=== PATIENT | male | born 1980 | race Caucasian/White ===

== ENCOUNTER 2017-06-12 19:13 | Emergency (ER) | payer OTHER ==
[~2017-06-12] VITALS: Ht 177.8 cm; Wt 90.7 kg
[~2017-06-12 19:13] MED LIST: BACTRIM DS TAB1 EACH PO; BACTROBAN CREAM30 G1 TOP; BENADRYL25 MG PO; CIPROFLOXACIN500 M1 PO; CLONAZEPAM 1 MG1 M1 PO; LIDEX30 GM TP; NOHOMEMEDICATIONS; NORCO 5-325 TA1 EACH PO; REMERON15 M1
[2017-06-12] MEDS ORDERED: HYDROCODONE-AP1 EAC6 PO (20:26)
[2017-06-12] MEDS ORDERED: IBUPROFEN 600600 M1 PO (20:26)
[2017-06-12 20:35] VITALS: BP 124/66
== END 2017-06-12 20:35 | disposition home or self-care (01) ==
LOC: M.ERS 19:13
DX: S83.91XA Sprain of unspecified site of right knee, initial encounter (principal); Z88.2 Allergy status to sulfonamides; Z88.5 Allergy status to narcotic agent; Z88.1 Allergy status to other antibiotic agents

== ENCOUNTER 2018-01-17 17:04 | Emergency (ER) | payer OTHER ==
[~2018-01-17] VITALS: Ht 177.8 cm; Wt 81.7 kg
[~2018-01-17 17:04] MED LIST changes: +HYDROCODONE-AP1 EAC6 PO; +IBUPROFEN 600600 M1 PO
[2018-01-17] MEDS ORDERED: NORCO 5-325 TA1 EACH PO (17:34)
[2018-01-17 18:06] VITALS: BP 104/76
== END 2018-01-17 18:08 | disposition home or self-care (01) ==
LOC: M.ERS 17:04
DX: T24.211A Burn of second degree of right thigh, initial encounter (principal); T31.0 Burns involving less than 10% of body surface; F17.210 Nicotine dependence, cigarettes, uncomplicated; Z88.5 Allergy status to narcotic agent; Z88.1 Allergy status to other antibiotic agents; Z88.2 Allergy status to sulfonamides; X12.XXXA Contact with other hot fluids, initial encounter; Y93.89 Activity, other specified; Y92.89 Other specified places as the place of occurrence of the external cause; Y99.8 Other external cause status

== ENCOUNTER 2018-07-22 18:01 | Emergency (ER) | payer OTHER ==
[~2018-07-22] VITALS: Ht 177.8 cm; Wt 94.3 kg
[2018-07-22 18:42] LABS: ABSOLUTE EOSINOPHILS 0.1 thou/uL (0.0-0.7); ABSOLUTE MONOCYTES 0.5 thou/uL (0.0-1.2); ABSOLUTE NEUTROPHILS 3.5 thou/uL (1.6-8.1); BASOPHILS 0.5 %; EOSINOPHILS 1.1 %; HEMATOCRIT 43.9 % (42.0-52.0); HEMOGLOBIN 15.1 gm/dL (14.0-18.0); LYMPHOCYTES 42.2 %; MCH 31.3 pg (26.0-34.0); MCHC 34.3 g/dL (28.0-37.0); MCV 91.2 fL (80.0-100.0); MONOCYTES 7.1 %; MPV 7.5 fl. (7.2-11.1); NUCLEATED RBCS 0 /100WBC; PLATELET COUNT* 200 thou/uL (150-400); POLYS 49.1 %; RBC 4.81 mil/uL (4.50-6.00); RDW-CV 13.2 % (10.5-14.5); WBC 7.2 thou/uL (4.0-11.0)
[2018-07-22 18:43] LABS: URINE BILIRUBIN NEGATIVE (Negative); URINE BLOOD NEGATIVE (Negative); URINE CLARITY CLEAR; URINE COLOR YELLOW; URINE GLUCOSE-RANDOM NEGATIVE (Negative); URINE KETONES NEGATIVE (Negative); URINE LEUKOCYTES-REFLEX NEGATIVE (Negative); URINE NITRITE-REFLEX NEGATIVE (Negative); URINE PROTEIN NEGATIVE (Negative); URINE SPECIFIC GRAVITY 1.025 (1.005-1.030)
[2018-07-22 19:02] LABS: ALBUMIN 3.9 g/dL (3.4-5.0); CALCIUM 8.5 mg/dL (8.5-10.1); CREATININE 1.1 mg/dL (0.6-1.3); POTASSIUM 3.4 mmol/L (3.5-5.1); TOTAL BILIRUBIN 1.2 mg/dL (<0.1-1.0)
[2018-07-22] MEDS ORDERED: ACETAMINOPHEN-1 EAC1 PO (20:31)
[2018-07-22] MEDS ORDERED: ZOFRAN ODT4 MG PO (20:31)
[2018-07-22] MEDS ORDERED: EMVERM100 MG PO (20:43)
[2018-07-22] MEDS ORDERED: ONDANSETRON HCL4 M2 PO (20:43)
[2018-07-22 20:50] VITALS: BP 118/58
== END 2018-07-22 20:50 | disposition home or self-care (01) ==
LOC: M.ERS 18:01
PROVIDERS: Physician Assistant
DX: B80 Enterobiasis (principal); R11.2 Nausea with vomiting, unspecified; R10.31 Right lower quadrant pain; R10.13 Epigastric pain; Z88.5 Allergy status to narcotic agent; Z88.2 Allergy status to sulfonamides; Z88.8 Allergy status to other drugs, medicaments and biological substances

== ENCOUNTER 2018-08-19 12:26 | Emergency (ER) | payer OTHER ==
[~2018-08-19] VITALS: Ht 172.7 cm; Wt 81.7 kg
[~2018-08-19 12:26] MED LIST changes: +ACETAMINOPHEN-1 EAC1 PO; +EMVERM100 MG PO; +ONDANSETRON HCL4 M2 PO; +ZOFRAN ODT4 MG PO
[2018-08-19 13:08] LABS: ABSOLUTE BASOPHILS 0.1 thou/uL (0.0-0.2); ABSOLUTE LYMPHOCYTES 2.4 thou/uL (0.8-5.3); ABSOLUTE MONOCYTES 0.5 thou/uL (0.0-1.2); EOSINOPHILS 0.7 %; HEMATOCRIT 43.1 % (42.0-52.0); HEMOGLOBIN 14.7 gm/dL (14.0-18.0); LYMPHOCYTES 40.2 %; MCH 31.4 pg (26.0-34.0); MCHC 34.1 g/dL (28.0-37.0); MONOCYTES 8.7 %; MPV 7.6 fl. (7.2-11.1); NUCLEATED RBCS 0 /100WBC; PLATELET COUNT* 206 thou/uL (150-400); POLYS 49.4 %; RBC 4.69 mil/uL (4.50-6.00); RDW-CV 13.1 % (10.5-14.5)
[2018-08-19 13:22] LABS: ALBUMIN 4.1 g/dL (3.4-5.0); CREATININE 0.9 mg/dL (0.6-1.3); POTASSIUM 3.7 mmol/L (3.5-5.1); TOTAL BILIRUBIN 0.9 mg/dL (<0.1-1.0); TOTAL PROTEIN 7.2 g/dL (6.4-8.2)
[2018-08-19 13:41] LABS: URINE BILIRUBIN NEGATIVE (Negative); URINE BLOOD NEGATIVE (Negative); URINE CLARITY CLEAR; URINE COLOR YELLOW; URINE GLUCOSE-RANDOM NEGATIVE (Negative); URINE KETONES NEGATIVE (Negative); URINE LEUKOCYTES-REFLEX NEGATIVE (Negative); URINE NITRITE-REFLEX NEGATIVE (Negative); URINE PROTEIN NEGATIVE (Negative); URINE SPECIFIC GRAVITY 1.015 (1.005-1.030); URINE UROBILINOGEN 0.2 E.U./dl (0.2-1.0)
[2018-08-19 13:50] LABS: AMP/METHAMP Negative (Negative); BARBITURATES Negative (Negative); BENZODIAZEPINES Negative (Negative); COCAINE Negative (Negative); METHADONE Negative (Negative); OPIATES Negative (Negative); PCP Negative (Negative); THC POSITIVE (Negative)
[2018-08-19 15:06] VITALS: BP 140/82
== END 2018-08-19 15:07 | disposition home or self-care (01) ==
LOC: M.ERS 12:26
PROVIDERS: Nurse Practitioner Family
DX: R10.84 Generalized abdominal pain (principal); R11.2 Nausea with vomiting, unspecified; Z88.2 Allergy status to sulfonamides; Z88.1 Allergy status to other antibiotic agents; Z88.5 Allergy status to narcotic agent

== ENCOUNTER 2020-07-10 09:52 | Emergency (ER) | payer OTHER ==
[~2020-07-10] VITALS: Ht 177.8 cm; Wt 77.6 kg
[2020-07-10] MEDS ORDERED: IBU400 MG PO (10:05)
[2020-07-10] MEDS ORDERED: HYDROCODON-ACE1 EAC7 PO (10:56)
[2020-07-10 11:46] VITALS: BP 149/87
[2020-07-10] MEDS ORDERED: FLEXERIL PO (11:49)
== END 2020-07-10 11:50 | disposition home or self-care (01) ==
LOC: M.ERS 09:52
DX: M25.512 Pain in left shoulder (principal); Z88.5 Allergy status to narcotic agent; Z88.2 Allergy status to sulfonamides; Z88.1 Allergy status to other antibiotic agents

== ENCOUNTER 2020-07-14 12:03 | Emergency (ER) | payer OTHER ==
[~2020-07-14] VITALS: Ht 177.8 cm; Wt 77.6 kg
[~2020-07-14 12:03] MED LIST changes: +FLEXERIL PO; +HYDROCODON-ACE1 EAC7 PO; +IBU400 MG PO
[2020-07-14] MEDS ORDERED: PREDNISONE50 MG PO (13:58)
[2020-07-14] MEDS ORDERED: FLEXERIL PO (13:58)
[2020-07-14 14:14] VITALS: BP 129/67
== END 2020-07-14 14:15 | disposition home or self-care (01) ==
LOC: M.ERS 12:03
DX: S46.812A Strain of other muscles, fascia and tendons at shoulder and upper arm level, left arm, initial encounter (principal); M54.12 Radiculopathy, cervical region; Z88.1 Allergy status to other antibiotic agents; Z88.2 Allergy status to sulfonamides; V89.2XXA Person injured in unspecified motor-vehicle accident, traffic, initial encounter; Y93.89 Activity, other specified; Y92.89 Other specified places as the place of occurrence of the external cause; Y99.8 Other external cause status